=== PATIENT | male | born 1995 ===

== ENCOUNTER 2017-02-03 20:16 | Emergency (ER) | payer BC ==
[2017-02-03 21:35] LABS: ANION GAP 13 mmol/L (0-20); BLOOD UREA NITROGEN 15 mg/dl (6-24); CALCIUM 8.9 mg/dl (8.5-10.5); CARBON DIOXIDE-VENOUS 24 mmol/L (22-32); CHLORIDE 104 mmol/l (96-110); GLUCOSE 95 mg/dL (70-110); SODIUM 137 mmol/L (135-145); eGFR VALUE FOR BLACK >90 mL/Min
== END 2017-02-03 21:55 ==
LOC: EDMED 20:16
PROVIDERS: Emergency Medicine
DX: I47.1 Supraventricular tachycardia (principal); Z90.89 Acquired absence of other organs; F17.200 Nicotine dependence, unspecified, uncomplicated
CPT/HCPCS: J7030